=== PATIENT | male | born 1960 | race Caucasian/White ===

== ENCOUNTER 2019-11-24 20:31 | Emergency (ER) | payer OTHER ==
--- NOTE | 2019-11-24 20:52 | ERPHSYRPT ---
- History of Present Illness Time Seen by Provider: 11/24/19 20:47 Source: patient Exam Limitations: no limitations Physician History: pt has had a couple days of nonproductive cough without fever but became concerned since he noted swelling of both calves adn edema at both ankles - no pain or erythema denies short of breath denies prior heart concerns; no N/V; no prior DVT or PE or blood clots; pt confirms that the chest pain is just momentary and only with coughing; pt states the cough is worse lying down at times but not short of breath Timing/Duration: day(s) Cough Quality/Degree: dry cough Possible Cause: occasional episodes Modifying Factors: Improves With: lying down Associated Symptoms: chest pain/soreness, cough, sore throat Allergies/Adverse Reactions: morphine Allergy (Verified 11/24/19 20:57) Home Medications: Metformin HCl 1000 mg [Glucophage 1000 MG] 1 tab PO BID 05/18/16 [History] lisinopriL [Lisinopril] 40 mg PO DAILY 05/18/16 [History] Chlorthalidone 40 mg PO DAILY 11/24/19 [History] Empagliflozin [Jardiance] 40 mg PO DAILY 11/24/19 [History] Esomeprazole Magnesium [Nexium] 40 mg PO DAILY 11/24/19 [History] Glipizide 10 mg PO BID 11/24/19 [History] Pravastatin Sodium 40 mg PO DAILY 11/24/19 [History] Hx Tetanus, Diphtheria Vaccination/Date Given: Yes Hx Influenza Vaccination/Date Given: No Hx Pneumococcal Vaccination/Date Given: Yes - Review of Systems Constitutional: No Fever, No Chills Eyes: No Symptoms Ears, Nose, & Throat: No Symptoms Respiratory: Cough, No Dyspnea Cardiac: No Edema, No Syncope Abdominal/Gastrointestinal: No Abdominal Pain, No Nausea, No Vomiting, No Diarrhea Genitourinary Symptoms: No Dysuria Musculoskeletal: No Back Pain, No Neck Pain Skin: No Rash Neurological: No Dizziness, No Focal Weakness, No Sensory Changes Psychological: No Symptoms Endocrine: No Symptoms Hematologic/Lymphatic: No Symptoms Immunological/Allergic: No Symptoms All Other Systems: Reviewed and Negative - Past Medical History Pertinent Past Medical History: Yes Neurological History: No Pertinent History ENT History: No Pertinent History Cardiac History: High Cholesterol, Hypertension Respiratory History: No Pertinent History Endocrine Medical History: Diabetes Type II Musculoskeletal History: No Pertinent History GI Medical History: GERD History: No Pertinent History Psycho-Social History: No Pertinent History Male Reproductive Disorders: No Pertinent History - Past Surgical History Past Surgical History: Yes Neuro Surgical History: No Pertinent History Cardiac: No Pertinent History Respiratory: No Pertinent History Gastrointestinal: Cholecystectomy, Hernia Repair Genitourinary: No Pertinent History Musculoskeletal: Orthopedic Surgery Male Surgical History: Other Other Surgical History: right elbow bone spur - hydrocele repair - Social History Smoking Status: Never smoker Exposure to second hand smoke: No Drug Use: none Patient Lives Alone: No - Nursing Vital Signs Nursing Vital Signs: Initial Vital Signs Temperature 97.9 F 11/24/19 20:44 Pulse Rate 86 11/24/19 20:44 Respiratory Rate 18 11/24/19 20:44 Blood Pressure 175/84 11/24/19 20:44 O2 Sat by Pulse Oximetry 99 11/24/19 20:44 Pain Scale Pain Intensity 0 - Physical Exam General Appearance: no apparent distress, alert Eye Exam: PERRL/EOMI, eyes nml inspection Ears, Nose, Throat Exam: normal ENT inspection, TMs normal, pharynx normal, moist mucous membranes Neck Exam: normal inspection, non-tender, supple, full range of motion Respiratory Exam: normal breath sounds, lungs clear, No respiratory distress Cardiovascular Exam: regular rate/rhythm, normal heart sounds Gastrointestinal/Abdomen Exam: soft, No tenderness Rectal Exam: deferred Back Exam: normal inspection, No CVA tenderness, No vertebral tenderness Extremity Exam: normal inspection, normal range of motion Neurologic Exam: alert, oriented x 3, cooperative, normal mood/affect, sensation nml, No motor deficits Skin Exam: normal color, warm, dry, other (bilateral 1 + edema neg homans no erythema), No rash Lymphatic Exam: No adenopathy - Course Nursing assessment & vital signs reviewed: Yes EKG Interpreted by Me: Sinus Rhythm, NORMAL AXIS, NORMAL INTERVALS, NORMAL QRS, Non-specific ST Changes - Radiology Exams Chest X-ray Interpretation: Reviewed by me, Other (bronchial thickening) - Radiology Ultrasound Exam Right Venous Lower Extremity Ultrasound: Other (no DVT reported ) Left Venous Lower Extremity Ultrasound: Other (no DVT reported) Ordered Tests: Active Orders 24 hr Category Date Time Status [employer] Account Assistant STAT Care 11/24/19 20:54 Active EKG-ER Only STAT Care 11/24/19 20:53 Active IV Insertion STAT Care 11/24/19 20:53 Active Pulse Oximetry (ED) STAT Care 11/24/19 20:53 Active CHEST 2 VIEWS (PA AND LAT) Stat Exams 11/24/19 20:54 Taken VENOUS BILATERAL EXTREMITY [US] Stat Exams 11/24/19 20:56 Taken CBC W DIFF Stat Lab 11/24/19 21:26 Completed CMP Stat Lab 11/24/19 21:26 Completed D-DIMER QUANTITATIVE Stat Lab 11/24/19 21:26 Completed NT PRO BNP Stat Lab 11/24/19 21:26 Completed TROPONIN Q3H Lab 11/24/19 21:26 Completed TROPONIN Q3H Lab 11/25/19 00:00 Ordered TROPONIN Q3H Lab 11/25/19 03:00 Ordered TROPONIN Q3H Lab 11/25/19 06:00 Ordered TROPONIN Q3H Lab 11/25/19 09:00 Ordered UA W/RFX UR CULTURE Stat Lab 11/24/19 21:57 Completed Medication Summary Generic Name Dose Route Start Last Admin Trade Name Freq PRN Reason Stop Dose Admin Sodium Chloride 1,000 mls @ 50 mls/hr 11/24/19 21:00 11/24/19 21:59 Sodium Chloride 0.9% 1000 Ml IV 12/24/19 20:59 Not Given .Q20H ANGELA Lab/Rad Data: Laboratory Result Diagrams 11/24/19 21:26 11/24/19 21:26 Laboratory Results 11/24/19 11/24/19 11/24/19 Range/Units Unknown 21:57 21:26 WBC (4.0-10.5) K/mm3 RBC (4.1-5.6) M/mm3 Hgb (12.5-18.0) gm/dl Hct (42-50) % MCV (78-100) fl MCH (26-32) pg MCHC (32-36) g/dl RDW (11.5-14.0) % Plt Count (150-450) K/mm3 MPV (7.5-11.0) fl Gran % (36.0-66.0) % Eos # (Auto) (0-0.5) Absolute Lymphs (auto) (1.0-4.6) Absolute Monos (auto) (0.0-1.3) Lymphocytes % (24.0-44.0) % Monocytes % (0.0-12.0) % Eosinophils % (0.00-5.0) % Basophils % (0.0-0.4) % Absolute Granulocytes (1.4-6.9) Basophils # (0-0.4) D-Dimer (215-500) ng/mL Sodium (137-145) mmol/L Potassium (3.5-5.1) mmol/L Chloride (98-107) mmol/L Carbon Dioxide (22-30) mmol/L Anion Gap (5-15) MEQ/L BUN (9-20) mg/dL Creatinine (0.66-1.25) mg/dL Estimated GFR ML/MIN Glucose (74-106) mg/dL Calcium (8.4-10.2) mg/dL Total Bilirubin (0.2-1.3) mg/dL AST (17-59) U/L ALT (0-50) U/L Alkaline Phosphatase (38-126) U/L Troponin I < 0.012 (0.000-0.034) ng/mL NT-Pro-B Natriuret Pep (0-900) pg/mL Serum Total Protein (6.3-8.2) g/dL Albumin (3.5-5.0) g/dL Urine Color STRAW (YELLOW) Urine Appearance CLEAR (CLEAR) Urine pH 5.0 (5-6) Ur Specific [place] 1.026 (1.005-1.025) Urine Protein NEGATIVE (Negative) Urine Ketones NEGATIVE (NEGATIVE) Urine Blood NEGATIVE (0-5) Aaron/ul Urine Nitrite NEGATIVE (NEGATIVE) Urine Bilirubin NEGATIVE (NEGATIVE) Urine Urobilinogen NEGATIVE (0-1) mg/dL Ur Leukocyte Esterase NEGATIVE (NEGATIVE) Urine WBC (Auto) NONE (0-5) /HPF Urine RBC (Auto) NONE (0-2) /HPF U Epithel Cells (Auto) NONE (FEW) /HPF Urine Bacteria (Auto) NONE (NEGATIVE) /HPF Urine Mucus (Auto) SLIGHT (NEGATIVE) /HPF Urine Culture Reflexed NO (NO) Urine Glucose >=500 (NEGATIVE) mg/dL Influenza Type A Ag NEGATIVE (NEGATIVE) Influenza Type B Ag NEGATIVE (NEGATIVE) RSV (PCR) NEGATIVE (Negative) 11/24/19 11/24/19 11/24/19 Range/Units 21:26 21:26 21:26 WBC 7.8 (4.0-10.5) K/mm3 RBC 4.55 (4.1-5.6) M/mm3 Hgb 13.4 (12.5-18.0) gm/dl Hct 41.1 L (42-50) % MCV 90.3 (78-100) fl MCH 29.5 (26-32) pg MCHC 32.6 (32-36) g/dl RDW 13.3 (11.5-14.0) % Plt Count 259 (150-450) K/mm3 MPV 10.0 (7.5-11.0) fl Gran % 52.8 (36.0-66.0) % Eos # (Auto) 0.59 H (0-0.5) Absolute Lymphs (auto) 2.21 (1.0-4.6) Absolute Monos (auto) 0.86 (0.0-1.3) Lymphocytes % 28.3 (24.0-44.0) % Monocytes % 11.0 (0.0-12.0) % Eosinophils % 7.5 H (0.00-5.0) % Basophils % 0.4 (0.0-0.4) % Absolute Granulocytes 4.13 (1.4-6.9) Basophils # 0.03 (0-0.4) D-Dimer 1246 H* (215-500) ng/mL Sodium 140 (137-145) mmol/L Potassium 4.9 (3.5-5.1) mmol/L Chloride 104 (98-107) mmol/L Carbon Dioxide 29 (22-30) mmol/L Anion Gap 11.9 (5-15) MEQ/L BUN 21 H (9-20) mg/dL Creatinine 0.99 (0.66-1.25) mg/dL Estimated GFR > 60.0 ML/MIN Glucose 300 H (74-106) mg/dL Calcium 9.4 (8.4-10.2) mg/dL Total Bilirubin 0.60 (0.2-1.3) mg/dL AST 25 (17-59) U/L ALT 25 (0-50) U/L Alkaline Phosphatase 149 H (38-126) U/L Troponin I (0.000-0.034) ng/mL NT-Pro-B Natriuret Pep 70.2 (0-900) pg/mL Serum Total Protein 8.1 (6.3-8.2) g/dL Albumin 4.4 (3.5-5.0) g/dL Urine Color (YELLOW) Urine Appearance (CLEAR) Urine pH (5-6) Ur Specific [place] (1.005-1.025) Urine Protein (Negative) Urine Ketones (NEGATIVE) Urine Blood (0-5) Aaron/ul Urine Nitrite (NEGATIVE) Urine Bilirubin (NEGATIVE) Urine Urobilinogen (0-1) mg/dL Ur Leukocyte Esterase (NEGATIVE) Urine WBC (Auto) (0-5) /HPF Urine RBC (Auto) (0-2) /HPF U Epithel Cells (Auto) (FEW) /HPF Urine Bacteria (Auto) (NEGATIVE) /HPF Urine Mucus (Auto) (NEGATIVE) /HPF Urine Culture Reflexed (NO) Urine Glucose (NEGATIVE) mg/dL Influenza Type A Ag (NEGATIVE) Influenza Type B Ag (NEGATIVE) RSV (PCR) (Negative) - Progress Progress: improved, re-examined Air Movement: good Progress Note: 11/24/19 23:26 discussed the risk and benefit of PE CT to rule out PE since elevated D dimer , and pt declines , and also risk of possible cardiac cause for his swelling/ symptoms jyoti being diabetic, and that he could have a complication including . However he wishes to decline further testing in ER at this time and also declines admission at this time as well and has the capacity to make this choice ; Blood Culture(s) Obtained: No Antibiotics given: Yes Counseled pt/family regarding: lab results, diagnosis, need for follow-up, rad results - Departure Departure Disposition: Home Clinical Impression: Bronchitis, bronchitis/pneumonitis, Elevated d-dimer, Right leg swelling, Left leg swelling Condition: Good Critical Care Time: No Referrals: ARACELY RAMOS [Primary Care Provider] - Instructions: Cough, Adult (DC), Pulmonary Embolism (Blood Clot in the Lungs), Chronic Bronchitis Additional Instructions: followup with your for your cough symptoms and swelling of the legs and further workup this week. although the blood test for a blood clot was elevated , there was none found in your legs , and you did not wish to do the CT with dye to check the lungs or other testing in the hospital. THere may be this or other conditions including with the heart which could cause this , although none was detected on the initial testing here. Therefore followup with your and return meantime if any concerning symptoms occur or any change of concern to you. we will give you instruction also for a lung blood clot for your information although we have not confirmed that diagnosis, but you are at risk. Prescriptions: Azithromycin [Zithromax] 250 mg PO DAILY #5 tablet
[2019-11-24] MEDS ORDERED: Sodium Chloride 0.9% 1000 ML 1,000 ML IV SCH (21:00)
[2019-11-24] MEDS ORDERED: Sodium Chloride 0.9% 1000 ML 1,000 ML ONE (21:06)
[2019-11-24 21:27] LABS: Absolute Neutrophil Ct (ANC) 4.13 (1.4-6.9); BASOPHIL % 0.4 % (0.0-0.4); Basophil (Absolute #) 0.03 (0-0.4); Eosinophil % 7.5 % (0.00-5.0); Eosinophil (Absolute #) 0.59 (0-0.5); Hematocrit 41.1 % (42-50); Hemoglobin 13.4 gm/dl (12.5-18.0); Lymphocyte (Absolute #) 2.21 (1.0-4.6); Lymphocytes % 28.3 % (24.0-44.0); Mean Cell Volume 90.3 fl (78-100); Mean Corpuscular Hemoglobin 29.5 pg (26-32); Mean Corpuscular Hgb Concent. 32.6 g/dl (32-36); Monocyte (Absolute #) 0.86 (0.0-1.3); Neutrophil % 52.8 % (36.0-66.0); Platelet Count 259 K/mm3 (150-450); Red Blood Count 4.55 M/mm3 (4.1-5.6); Red Cell Distribution Width 13.3 % (11.5-14.0); White Blood Count 7.8 K/mm3 (4.0-10.5)
[2019-11-24 21:50] LABS: ALBUMIN 4.4 g/dL (3.5-5.0); ALKALINE PHOSPHATASE 149 U/L (38-126); ANION GAP 11.9 MEQ/L (5-15); BLOOD UREA NITROGEN 21 mg/dL (9-20); CHLORIDE 104 mmol/L (98-107); Calcium 9.4 mg/dL (8.4-10.2); Carbon Dioxide 29 mmol/L (22-30); Creatinine 1 0.99 mg/dL (0.66-1.25); Glucose 300 mg/dL (74-106); NT PRO BNP 70.2 pg/mL (0-900); Potassium 4.9 mmol/L (3.5-5.1); SGOT/AST 25 U/L (17-59); SGPT/ALT 25 U/L (0-50); SODIUM 140 mmol/L (137-145); Total Protein 8.1 g/dL (6.3-8.2)
[2019-11-24 22:01] LABS: Appearance CLEAR (CLEAR); Bilirubin NEGATIVE (NEGATIVE); Blood NEGATIVE Ery/ul (0-5); Glucose >=500 mg/dL (NEGATIVE); Ketones NEGATIVE (NEGATIVE); Leukocyte Esterase NEGATIVE (NEGATIVE); Mucus SLIGHT /HPF (NEGATIVE); Nitrite NEGATIVE (NEGATIVE); Protein,Urine Dip NEGATIVE (Negative); Specific Gravity 1.026 (1.005-1.025); Urobilinogen NEGATIVE mg/dL (0-1)
[2019-11-24 22:04] VITALS: O2SAT 98
[2019-11-24 22:35] LABS: INFLUENZA A NEGATIVE (NEGATIVE); INFLUENZA B NEGATIVE (NEGATIVE); RESPIRATORY SYNCTIAL VIRUS NEGATIVE (Negative)
[2019-11-24 23:05] VITALS: BP 128/81; PULSE 69
[2019-11-24] MEDS ORDERED: Zithromax 250 MG TABLET PO ONE (23:45)
[2019-11-24] MEDS ORDERED: Zithromax 250 MG TABLET ONE (23:52)
--- NOTE | 2019-11-25 08:06 | XRAY ---
Indication: Bilateral leg swelling. Two-dimensional sonogram and color Doppler imaging of the major venous vessels of the left and right leg was performed. Comparison: None No thrombus seen in the examined deep venous vessels of the left and right leg including greater saphenous vein. Veins demonstrate normal compressibility. Venous waveforms are normal with and without augmentation. Impression: Left and right legs negative for DVT. Comment: Preliminary report was given.
--- NOTE | 2019-11-25 08:11 | XRAY ---
Indication: Cough and leg edema. Comparison: September 11, 2015. PA/lateral chest again demonstrates normal heart and lungs. Bony thorax intact again with mild degenerative changes. No new/acute findings.
== END 2019-11-25 | disposition home or self-care (01) ==
LOC: ED 20:31
DX: J40 Bronchitis, not specified as acute or chronic (principal); J18.9 Pneumonia, unspecified organism; R79.1 Abnormal coagulation profile; M79.89 Other specified soft tissue disorders; R07.89 Other chest pain; R05 Cough; J02.9 Acute pharyngitis, unspecified; Z79.899 Other long term (current) drug therapy; E78.00 Pure hypercholesterolemia, unspecified; I10 Essential (primary) hypertension; E11.9 Type 2 diabetes mellitus without complications
CPT/HCPCS: 36415; 71046; 80053; 81001; 83880; 84484; 85025; 85379; 87631; 93005; 93041; 93970; 94760; 99284; A9270-GY